=== PATIENT | male | born 1950 | race Caucasian/White ===

== ENCOUNTER 2021-08-03 10:27 | Outpatient (CLI) | payer MEDICARE | END 2021-08-03 10:28 | disposition home or self-care (01) | LOC: BICULT 10:27 | PROVIDERS: ATTEND Internal Medicine Nephrology | DX: N18.30 Chronic kidney disease, stage 3 unspecified (principal); N28.1 Cyst of kidney, acquired; N28.89 Other specified disorders of kidney and ureter | CPT/HCPCS: 76770 ==

== ENCOUNTER 2022-10-08 22:38 | Observation (INO) | payer MEDICARE ==
[2022-10-09 00:19] LABS: BUN (Urea Nitrogen) 32 mg/dL (8.4-25.7); Calc. Creatinine Clearance 0 mL/min (70-130); Calcium 9.9 mg/dL (7.8-10.44); Chloride 104 mmol/L (98-107); Estimated GFR 59; Glucose 184 mg/dL (83-110); Potassium 5.2 mmol/L (3.5-5.1); Sodium 135 mmol/L (136-145)
[2022-10-09 00:54] LABS: Anion Gap 14 mmol/L (10-20); Carbon Dioxide 22 mmol/L (23-31)
[2022-10-09] MEDS ORDERED: Ondansetron PF 4 MG/2 ML Vial IVP PRN (01:15)
[2022-10-09] MEDS ORDERED: Ondansetron ODT 4 MG TAB SL PRN (01:15)
[2022-10-09] MEDS ORDERED: Acetaminophen 325 MG TAB PO PRN (01:15)
[2022-10-09] MEDS ORDERED: hydrALAZINE 20 MG/ML VIAL SLOW IVP PRN (02:20)
[2022-10-09] MEDS ORDERED: Glucagon 1 MG/ML KIT IM PRN (02:21)
[2022-10-09] MEDS ORDERED: HumaLOG 300 UNITS/3 ML VIAL SC PRN ×2 (02:21)
[2022-10-09] MEDS ORDERED: Dextrose 5% in Water 1,000 ML IV PRN (02:21)
[2022-10-09] MEDS ORDERED: Dextrose 50% Abboject 50 ML SYRINGE SLOW IVP PRN (02:21)
[2022-10-09 03:57] VITALS: BMI 34.2
[2022-10-09] MEDS: Sodium Chloride 0.9% 1,000 ML IV SCH ×2 (04:22→17:05)
[2022-10-09] MEDS ORDERED: Ezetimibe 10 MG TAB PO SCH (09:00)
[2022-10-09] MEDS ORDERED: Iopamidol 370 76% 100 ML VIAL ONE (09:28)
[2022-10-09 11:19] LABS: #Eosinphils 0.2 thou/uL (0.0-0.7); #Monocytes 0.4 thou/uL (0.11-0.59); #Neutrophils 4.4 thou/uL (1.40-6.50); %Basophils 0.5 % (0.0-1.0); %Eosinophils 2.5 % (0.0-10.0); %Lymphocytes 22.8 % (21.0-51.0); %Monocytes 5.9 % (0.0-10.0); %Neutrophils 68.1 % (42.0-75.0); Hemoglobin 12.5 g/dL (14.0-18.0); Mean Corpuscular HGB CONC 33.2 g/dL (32.0-36.0); Mean Corpuscular Hemoglobin 30.9 pg (27.0-31.0); Mean Corpuscular Volume 93.1 fl (78.0-98.0); Mean Platelet Volume 9.1 fL (7.4-10.4); Platelet Count 238 10x3/uL (130-400); RBC Distribution Width 12.2 % (11.5-14.5); Red Blood Cell (RBC) Count 4.05 mill/uL (4.70-6.10); White Blood Cell (WBC) Count 6.5 10x3/uL (4.8-10.8)
[2022-10-09 11:56] LABS: Potassium 4.8 mmol/L (3.5-5.1); Sodium 137 mmol/L (136-145)
[2022-10-09 11:57] LABS: Anion Gap 14 mmol/L (10-20); BUN (Urea Nitrogen) 28 mg/dL (8.4-25.7); Calc. Creatinine Clearance 84 mL/min (70-130); Calcium 9.6 mg/dL (7.6-10.4); Carbon Dioxide 24 mmol/L (23-31); Chloride 104 mmol/L (98-107); Estimated GFR 63; Glucose 177 mg/dL (83-110)
[2022-10-09 16:25] VITALS: BP 112/62; TEMP 98.2
[2022-10-09] MEDS ORDERED: Gemfibrozil 600 MG TAB PO SCH (16:30)
== END 2022-10-09 18:24 | disposition home or self-care (01) ==
LOC: ERS 22:38 → 2SE 10-09 00:54
PROVIDERS: ADMIT Internal Medicine; ATTEND Internal Medicine
DX: R42 Dizziness and giddiness (principal); I16.0 Hypertensive urgency; I10 Essential (primary) hypertension; E87.5 Hyperkalemia; E87.1 Hypo-osmolality and hyponatremia; I08.1 Rheumatic disorders of both mitral and tricuspid valves; E78.5 Hyperlipidemia, unspecified; E11.9 Type 2 diabetes mellitus without complications; Z90.49 Acquired absence of other specified parts of digestive tract; Z90.89 Acquired absence of other organs; Z88.6 Allergy status to analgesic agent
CPT/HCPCS: 70498; 70551; 80048 ×2; 82962; 84484; 85025; 93005; 93306; 93880; 99285; G0378 ×2; 36415; 36416; J7050; Q9967